=== PATIENT | female | born 1945 | race African-American/Black ===

== ENCOUNTER 2018-01-01 10:44 | Inpatient (IN) ==
[2018-01-01 11:34] LABS: Apearance,Urine CLEAR (Clear); Bacteria,Urine Occasional /HPF (Few); Bilirubin,Urine Negative (Negative); Blood, Urine Small mg/dL (Negative); Glucose,Urine (UA) Negative (Negative); Ketones,Urine Negative (Negative); Nitrite,Urine Positive (Negative); Protein,Urine Negative; RBC,Urine 1 /HPF (0-4); Squamous Epithelial Cell,Urine Occasional /HPF (0-10); Urine Color Yellow (Yellow); Urine Specific Gravity 1.008 (1.001-1.035); Urine Urobilinogen < 2.0 EU/DL (0.2-1.0); WBC,Urine 11 /HPF (0-6)
[2018-01-01 11:40] LABS: Basophils # 0.1 10*3/uL (0.0-0.2); Basophils % 0.3 % (0.0-0.8); Eosinophils # 0.1 10*3/uL (0.0-0.87); Eosinophils % 0.6 % (0.00-10.9); Hematocrit 39.7 VOL% (35.7-47.0); Hemoglobin 12.7 GM/DL (12.0-16.0); Immature Granulocytes % 0.5 %; Immature Granulocytes Absolute 0.08 #; Lymphocytes # 1.3 10*3/uL (1.4-4.0); Lymphocytes % 8.3 % (21.3-54.2); Mean Corpuscular Hemoglobin 25 PG (27-34); Mean Corpuscular Volume 77.2 FL (87-102); Mean Platelet Volume 11.1 FL (9.6-12.0); Monocytes # 1.4 10*3/uL (0.11-0.8); Monocytes % 9.4 % (1.7-12.7); Neutrophils # 12.2 10*3/uL (1.4-7.4); Neutrophils % 80.9 % (38.7-73.9); Platelet Count 257 T/CUMM (130-400); Red Blood Count 5.14 MC/CUMM (3.8-5.5); Red Cell Distribution Width 14.8 % (9.3-17.3); White Blood Count 15.1 T/CUMM (4-12)
[2018-01-01 12:10] LABS: Albumin 3.2 G/DL (3.4-5.0); Bilirubin,Total 0.7 MG/DL (0.2-1.0); Calcium 9.5 MG/DL (8.5-10.1); Osmolality,Calculated 272.4 MOS/KG (273-304); Potassium 3.5 MMOL/L (3.5-5.1); Total Protein 8.6 G/DL (6.4-8.3)
[2018-01-01] MEDS ORDERED: PIPERACILLIN/TAZOBACTAM 3,375 MG in SODIUM CHLORIDE 0.9% 100 ML IV STA (13:04)
[2018-01-01] MEDS ORDERED: ACETAMINOPHEN 325 MG TABLET PO PRN (14:48)
[2018-01-01] MEDS ORDERED: ONDANSETRON 4 MG TABLET PO PRN (14:48)
[2018-01-01] MEDS ORDERED: MAGNESIUM HYDROXIDE SUSP 30 ML UDCUP PO PRN (14:48)
[2018-01-01] MEDS ORDERED: ALUMINUM/MAGNES/SIMETH MAX STR 30 ML UDCUP PO PRN (14:48)
[2018-01-01] MEDS ORDERED: TEMAZEPAM 15 MG CAPSULE PO PRN (14:48)
[2018-01-01] MEDS ORDERED: NITROGLYCERIN SL 0.4 MG TABLET SL PRN (14:48)
[2018-01-01] MEDS ORDERED: NON-FORMULARY MEDICATION (Cholecalciferol (Vitamin D3) [Vitamin D3] 50,000 UNIT) PO SCH (15:00)
[2018-01-01] MEDS ORDERED: CYANOCOBALAMIN 1000 MCG/1 ML VIAL IM SCH (15:00)
[2018-01-01] MEDS ORDERED: LEVOFLOXACIN INJ 500 MG in PREMIX 1 EACH IV SCH (18:00)
[2018-01-01] MEDS ORDERED: OLANZapine 5 MG TABLET PO SCH (21:00)
[2018-01-01] MEDS: traMADol 50 MG TABLET PO PRN (21:22)
[2018-01-01] MEDS: VANCOMYCIN INJ 2,000 MG in SODIUM CHLORIDE 0.9% 500 ML IV SCH (21:32)
[2018-01-01] MEDS: CLOTRIMAZOLE 1% CREAM 15 GM TUBE TOP SCH (21:32)
[2018-01-01] MEDS: BUDESONIDE/FORMOTEROL 160-4.5 INHALER 6 GM INH SCH (21:32)
[2018-01-01] MEDS: URSODIOL 300 MG CAPSULE PO SCH (21:32)
[2018-01-01] MEDS: NYSTATIN POWDER 15 GM BOTTLE TOP SCH (21:32)
[2018-01-01] MEDS: FUROSEMIDE 80 MG TABLET PO SCH (21:32)
[2018-01-01] MEDS: SKIN HEALING OINT (AQUAPHOR) 50 GM TUBE TOP SCH (21:33)
[2018-01-01] MEDS: INSULIN GLARGINE 100 UNIT/ML SUBCUT SCH (21:33)
[2018-01-02] MEDS: PIPERACILLIN/TAZOBACTAM 3,375 MG in SODIUM CHLORIDE 0.9% 100 ML IV SCH ×3 (02:25→21:29)
[2018-01-02 06:30] LABS: Basophils % 0.3 % (0.0-0.8); Eosinophils # 0.3 10*3/uL (0.0-0.87); Eosinophils % 3.6 % (0.00-10.9); Hematocrit 32.6 VOL% (35.7-47.0); Hemoglobin 10.5 GM/DL (12.0-16.0); Immature Granulocytes % 0.6 %; Immature Granulocytes Absolute 0.05 #; Lymphocytes # 1.3 10*3/uL (1.4-4.0); Lymphocytes % 14.7 % (21.3-54.2); Mean Corpuscular HGB Conc 32.2 GM/DL (32-36); Mean Corpuscular Hemoglobin 25 PG (27-34); Mean Corpuscular Volume 78.2 FL (87-102); Monocytes # 0.8 10*3/uL (0.11-0.8); Monocytes % 8.8 % (1.7-12.7); Neutrophils # 6.2 10*3/uL (1.4-7.4); Platelet Count 237 T/CUMM (130-400); Red Blood Count 4.17 MC/CUMM (3.8-5.5); Red Cell Distribution Width 14.6 % (9.3-17.3); White Blood Count 8.6 T/CUMM (4-12)
[2018-01-02 07:15] LABS: Albumin 2.6 G/DL (3.4-5.0); Bilirubin,Total 0.8 MG/DL (0.2-1.0); Calcium 8.6 MG/DL (8.5-10.1); Potassium 2.8 MMOL/L (3.5-5.1); Total Protein 7.1 G/DL (6.4-8.3)
[2018-01-02] MEDS ORDERED: ALPRAZolam 0.25 MG TABLET PO PRN (07:24)
[2018-01-02] MEDS ORDERED: ONDANSETRON 4 MG/2 ML VIAL IV PRN (08:37)
[2018-01-02] MEDS ORDERED: diphenhydrAMINE 50 MG/1 ML VIAL IV PRN (08:37)
[2018-01-02] MEDS ORDERED: PROMETHAZINE INJ 25 MG in SODIUM CHLORIDE 0.9% 50 ML IV PRN (08:37)
[2018-01-02] MEDS ORDERED: LIDOCAINE 1% 20 ML VIAL ONE (08:57)
[2018-01-02] MEDS: SODIUM HYPOCHLORITE 0.25% IRRIG 473 ML BOTTLE TOP SCH (09:00)
[2018-01-02] MEDS ORDERED: DEXTROSE 50% 25 GM/50 ML VIAL IV PRN (09:09)
[2018-01-02] MEDS ORDERED: GLUCAGON 1 MG VIAL IM PRN (09:09)
[2018-01-02] MEDS: POTASSIUM CHLORIDE RIDER 10 MEQ in PREMIX 1 EACH IV PRN ×5 (09:39→14:37)
[2018-01-02] MEDS: THYROID 60 MG TABLET PO SCH (10:52)
[2018-01-02] MEDS: ASPIRIN EC 81 MG TABLET PO SCH (10:52)
[2018-01-02] MEDS: URSODIOL 300 MG CAPSULE PO SCH ×2 (10:52→21:30)
[2018-01-02] MEDS: FUROSEMIDE 80 MG TABLET PO SCH ×2 (10:53→20:24)
[2018-01-02] MEDS: BUDESONIDE/FORMOTEROL 160-4.5 INHALER 6 GM INH SCH ×2 (10:53→21:33)
[2018-01-02] MEDS: PANTOPRAZOLE 40 MG TABLET PO SCH (10:53)
[2018-01-02] MEDS: ATENOLOL 25 MG TABLET PO SCH (10:55)
[2018-01-02] MEDS: metOLazone 5 MG TABLET PO SCH ×2 (10:55→10:59)
[2018-01-02] MEDS: NYSTATIN POWDER 15 GM BOTTLE TOP SCH ×2 (13:30→21:31)
[2018-01-02] MEDS: SKIN HEALING OINT (AQUAPHOR) 50 GM TUBE TOP SCH ×2 (13:30→21:31)
[2018-01-02] MEDS: CLOTRIMAZOLE 1% CREAM 15 GM TUBE TOP SCH ×2 (13:30→21:31)
[2018-01-02] MEDS: VANCOMYCIN INJ 2,000 MG in SODIUM CHLORIDE 0.9% 500 ML IV SCH (16:10)
[2018-01-02] MEDS: INSULIN GLARGINE 100 UNIT/ML SUBCUT SCH (21:31)
[2018-01-02] MEDS: MECLIZINE 25 MG TABLET PO PRN (23:57)
[2018-01-03] MEDS: POTASSIUM CHLORIDE RIDER 10 MEQ in PREMIX 1 EACH IV PRN ×6 (01:35→18:11)
[2018-01-03] MEDS: traMADol 50 MG TABLET PO PRN ×3 (02:57→21:40)
[2018-01-03 05:15] LABS: Basophils % 0.4 % (0.0-0.8); Eosinophils # 0.4 10*3/uL (0.0-0.87); Eosinophils % 5.2 % (0.00-10.9); Hemoglobin 10.7 GM/DL (12.0-16.0); Immature Granulocytes % 0.6 %; Immature Granulocytes Absolute 0.04 #; Lymphocytes # 1.3 10*3/uL (1.4-4.0); Lymphocytes % 17.5 % (21.3-54.2); Mean Corpuscular HGB Conc 32.4 GM/DL (32-36); Mean Corpuscular Hemoglobin 25 PG (27-34); Mean Corpuscular Volume 76.6 FL (87-102); Mean Platelet Volume 10.8 FL (9.6-12.0); Monocytes # 0.7 10*3/uL (0.11-0.8); Monocytes % 9.1 % (1.7-12.7); Neutrophils # 4.9 10*3/uL (1.4-7.4); Neutrophils % 67.2 % (38.7-73.9); Platelet Count 263 T/CUMM (130-400); Red Blood Count 4.31 MC/CUMM (3.8-5.5); Red Cell Distribution Width 14.7 % (9.3-17.3); White Blood Count 7.2 T/CUMM (4-12)
[2018-01-03 05:49] LABS: Albumin 2.5 G/DL (3.4-5.0); Bilirubin,Total 0.5 MG/DL (0.2-1.0); Calcium 8.9 MG/DL (8.5-10.1); Osmolality,Calculated 278.7 MOS/KG (273-304); Potassium 3.4 MMOL/L (3.5-5.1)
[2018-01-03] MEDS: PIPERACILLIN/TAZOBACTAM 3,375 MG in SODIUM CHLORIDE 0.9% 100 ML IV SCH ×3 (05:50→22:16)
[2018-01-03] MEDS: PANTOPRAZOLE 40 MG TABLET PO SCH (08:55)
[2018-01-03] MEDS: ATENOLOL 25 MG TABLET PO SCH (08:56)
[2018-01-03] MEDS: BUDESONIDE/FORMOTEROL 160-4.5 INHALER 6 GM INH SCH ×2 (09:02→21:40)
[2018-01-03] MEDS ORDERED: PROMETHAZINE INJ 25 MG in SODIUM CHLORIDE 0.9% 50 ML IV PRN (09:46)
[2018-01-03] MEDS ORDERED: ONDANSETRON 4 MG/2 ML VIAL IV PRN (09:46)
[2018-01-03] MEDS ORDERED: fentaNYL 100 MCG/2 ML VIAL IV PRN ×2 (09:47)
[2018-01-03] MEDS: VANCOMYCIN INJ 2,000 MG in SODIUM CHLORIDE 0.9% 500 ML IV SCH (11:44)
[2018-01-03] MEDS ORDERED: PROPOFOL 200 MG/20 ML VIAL IV ONE (12:05)
[2018-01-03] MEDS ORDERED: fentaNYL 100 MCG/2 ML VIAL ONE (12:06)
[2018-01-03] MEDS ORDERED: MIDAZOLAM 2 MG/2 ML VIAL ONE (12:06)
[2018-01-03] MEDS ORDERED: GLUCAGON 1 MG VIAL IM PRN (12:13)
[2018-01-03] MEDS ORDERED: DEXTROSE 50% 25 GM/50 ML VIAL IV PRN (12:13)
[2018-01-03] MEDS: SKIN HEALING OINT (AQUAPHOR) 50 GM TUBE TOP SCH ×2 (15:31→21:41)
[2018-01-03] MEDS: URSODIOL 300 MG CAPSULE PO SCH ×2 (15:31→22:02)
[2018-01-03] MEDS: CLOTRIMAZOLE 1% CREAM 15 GM TUBE TOP SCH ×2 (15:32→21:42)
[2018-01-03] MEDS: FUROSEMIDE 80 MG TABLET PO SCH ×3 (15:32→22:15)
[2018-01-03] MEDS: SODIUM HYPOCHLORITE 0.25% IRRIG 473 ML BOTTLE TOP SCH (15:32)
[2018-01-03] MEDS: ASPIRIN EC 81 MG TABLET PO SCH (15:32)
[2018-01-03] MEDS: THYROID 60 MG TABLET PO SCH (16:44)
[2018-01-03] MEDS: metOLazone 5 MG TABLET PO SCH (17:58)
[2018-01-03] MEDS: NYSTATIN POWDER 15 GM BOTTLE TOP SCH ×2 (17:58→21:42)
[2018-01-03] MEDS: INSULIN GLARGINE 100 UNIT/ML SUBCUT SCH (21:41)
[2018-01-04] MEDS: traMADol 50 MG TABLET PO PRN ×4 (03:33→22:09)
[2018-01-04 05:09] LABS: Basophils % 0.5 % (0.0-0.8); Eosinophils # 0.4 10*3/uL (0.0-0.87); Eosinophils % 5.6 % (0.00-10.9); Hematocrit 33.9 VOL% (35.7-47.0); Hemoglobin 10.7 GM/DL (12.0-16.0); Immature Granulocytes % 0.3 %; Immature Granulocytes Absolute 0.02 #; Lymphocytes # 1.5 10*3/uL (1.4-4.0); Lymphocytes % 19.8 % (21.3-54.2); Mean Corpuscular HGB Conc 31.6 GM/DL (32-36); Mean Corpuscular Hemoglobin 25 PG (27-34); Mean Corpuscular Volume 79.2 FL (87-102); Mean Platelet Volume 10.1 FL (9.6-12.0); Monocytes # 0.7 10*3/uL (0.11-0.8); Monocytes % 9.8 % (1.7-12.7); Neutrophils # 4.8 10*3/uL (1.4-7.4); Platelet Count 262 T/CUMM (130-400); Red Blood Count 4.28 MC/CUMM (3.8-5.5); Red Cell Distribution Width 14.9 % (9.3-17.3); White Blood Count 7.5 T/CUMM (4-12)
[2018-01-04 05:38] LABS: Albumin 2.6 G/DL (3.4-5.0); Bilirubin,Total 0.6 MG/DL (0.2-1.0); Calcium 8.7 MG/DL (8.5-10.1); Osmolality,Calculated 277.5 MOS/KG (273-304); Potassium 3.5 MMOL/L (3.5-5.1); Total Protein 7.2 G/DL (6.4-8.3)
[2018-01-04] MEDS: VANCOMYCIN INJ 2,000 MG in SODIUM CHLORIDE 0.9% 500 ML IV SCH ×2 (06:22→11:05)
[2018-01-04] MEDS: PIPERACILLIN/TAZOBACTAM 3,375 MG in SODIUM CHLORIDE 0.9% 100 ML IV SCH ×2 (06:33→16:35)
[2018-01-04] MEDS: ASPIRIN EC 81 MG TABLET PO SCH (09:30)
[2018-01-04] MEDS: PANTOPRAZOLE 40 MG TABLET PO SCH (09:30)
[2018-01-04] MEDS: ATENOLOL 25 MG TABLET PO SCH (09:30)
[2018-01-04] MEDS: URSODIOL 300 MG CAPSULE PO SCH ×2 (09:30→22:00)
[2018-01-04] MEDS: FUROSEMIDE 80 MG TABLET PO SCH ×2 (09:30→22:00)
[2018-01-04] MEDS: THYROID 60 MG TABLET PO SCH (09:30)
[2018-01-04] MEDS: SODIUM HYPOCHLORITE 0.25% IRRIG 473 ML BOTTLE TOP SCH (09:31)
[2018-01-04] MEDS: CLOTRIMAZOLE 1% CREAM 15 GM TUBE TOP SCH ×2 (09:31→22:02)
[2018-01-04] MEDS: NYSTATIN POWDER 15 GM BOTTLE TOP SCH ×2 (09:31→22:03)
[2018-01-04] MEDS: metOLazone 5 MG TABLET PO SCH (09:31)
[2018-01-04] MEDS: SKIN HEALING OINT (AQUAPHOR) 50 GM TUBE TOP SCH ×2 (09:31→22:03)
[2018-01-04] MEDS: BUDESONIDE/FORMOTEROL 160-4.5 INHALER 6 GM INH SCH ×2 (09:48→22:02)
[2018-01-04] MEDS: MECLIZINE 25 MG TABLET PO PRN (11:08)
[2018-01-04] MEDS: POLYETHYLENE GLYCOL POWDER 17 GM PACK PO PRN (11:08)
[2018-01-04] MEDS: INSULIN GLARGINE 100 UNIT/ML SUBCUT SCH (22:01)
[2018-01-05] MEDS: traMADol 50 MG TABLET PO PRN ×2 (04:05→22:03)
[2018-01-05] MEDS: PIPERACILLIN/TAZOBACTAM 3,375 MG in SODIUM CHLORIDE 0.9% 100 ML IV SCH ×3 (09:16→19:03)
[2018-01-05] MEDS: URSODIOL 300 MG CAPSULE PO SCH ×2 (09:17→22:03)
[2018-01-05] MEDS: PANTOPRAZOLE 40 MG TABLET PO SCH (09:17)
[2018-01-05] MEDS: MECLIZINE 25 MG TABLET PO PRN (09:17)
[2018-01-05] MEDS: THYROID 60 MG TABLET PO SCH (09:18)
[2018-01-05] MEDS: FUROSEMIDE 80 MG TABLET PO SCH ×2 (09:18→22:04)
[2018-01-05] MEDS: ATENOLOL 25 MG TABLET PO SCH ×2 (09:19→09:37)
[2018-01-05] MEDS: metOLazone 5 MG TABLET PO SCH (09:20)
[2018-01-05] MEDS: ASPIRIN EC 81 MG TABLET PO SCH (09:22)
[2018-01-05] MEDS: SKIN HEALING OINT (AQUAPHOR) 50 GM TUBE TOP SCH ×2 (09:35→22:05)
[2018-01-05] MEDS: NYSTATIN POWDER 15 GM BOTTLE TOP SCH ×2 (09:36→22:04)
[2018-01-05] MEDS: BUDESONIDE/FORMOTEROL 160-4.5 INHALER 6 GM INH SCH ×2 (09:36→22:04)
[2018-01-05] MEDS: CLOTRIMAZOLE 1% CREAM 15 GM TUBE TOP SCH ×2 (09:36→22:04)
[2018-01-05] MEDS: SODIUM HYPOCHLORITE 0.25% IRRIG 473 ML BOTTLE TOP SCH (09:36)
[2018-01-05] MEDS: VANCOMYCIN INJ 2,000 MG in SODIUM CHLORIDE 0.9% 500 ML IV SCH (16:04)
[2018-01-05] MEDS: POLYETHYLENE GLYCOL POWDER 17 GM PACK PO PRN (19:03)
[2018-01-05] MEDS: POTASSIUM CHLORIDE 20 MEQ TABLET PO SCH (22:03)
[2018-01-05] MEDS: INSULIN GLARGINE 100 UNIT/ML SUBCUT SCH (22:03)
[2018-01-06] MEDS: PIPERACILLIN/TAZOBACTAM 3,375 MG in SODIUM CHLORIDE 0.9% 100 ML IV SCH ×3 (02:46→20:49)
[2018-01-06] MEDS: traMADol 50 MG TABLET PO PRN (06:05)
[2018-01-06 06:25] LABS: Basophils # 0.1 10*3/uL (0.0-0.2); Basophils % 0.7 % (0.0-0.8); Eosinophils # 0.3 10*3/uL (0.0-0.87); Eosinophils % 4.3 % (0.00-10.9); Hematocrit 35.2 VOL% (35.7-47.0); Hemoglobin 10.9 GM/DL (12.0-16.0); Immature Granulocytes % 0.1 %; Immature Granulocytes Absolute 0.01 #; Lymphocytes # 1.4 10*3/uL (1.4-4.0); Lymphocytes % 21.6 % (21.3-54.2); Mean Corpuscular Hemoglobin 25 PG (27-34); Mean Corpuscular Volume 79.1 FL (87-102); Mean Platelet Volume 10.4 FL (9.6-12.0); Monocytes # 0.7 10*3/uL (0.11-0.8); Monocytes % 10.5 % (1.7-12.7); Neutrophils # 4.2 10*3/uL (1.4-7.4); Neutrophils % 62.8 % (38.7-73.9); Platelet Count 286 T/CUMM (130-400); Red Blood Count 4.45 MC/CUMM (3.8-5.5); Red Cell Distribution Width 14.9 % (9.3-17.3); White Blood Count 6.7 T/CUMM (4-12)
[2018-01-06 06:52] LABS: Calcium 9.2 MG/DL (8.5-10.1); Osmolality,Calculated 275.7 MOS/KG (273-304); Potassium 3.7 MMOL/L (3.5-5.1)
[2018-01-06] MEDS: URSODIOL 300 MG CAPSULE PO SCH ×2 (08:32→20:24)
[2018-01-06] MEDS: ASPIRIN EC 81 MG TABLET PO SCH (08:32)
[2018-01-06] MEDS: THYROID 60 MG TABLET PO SCH (08:32)
[2018-01-06] MEDS: PANTOPRAZOLE 40 MG TABLET PO SCH (08:32)
[2018-01-06] MEDS: FUROSEMIDE 80 MG TABLET PO SCH ×2 (08:33→20:45)
[2018-01-06] MEDS: POTASSIUM CHLORIDE 20 MEQ TABLET PO SCH ×2 (08:34→20:45)
[2018-01-06] MEDS: METHOCARBAMOL 500 MG TABLET PO PRN (08:34)
[2018-01-06] MEDS: NYSTATIN POWDER 15 GM BOTTLE TOP SCH ×2 (08:35→21:25)
[2018-01-06] MEDS: BUDESONIDE/FORMOTEROL 160-4.5 INHALER 6 GM INH SCH ×2 (08:35→20:21)
[2018-01-06] MEDS: CLOTRIMAZOLE 1% CREAM 15 GM TUBE TOP SCH ×2 (08:35→21:25)
[2018-01-06] MEDS: SODIUM HYPOCHLORITE 0.25% IRRIG 473 ML BOTTLE TOP SCH (08:35)
[2018-01-06] MEDS: SKIN HEALING OINT (AQUAPHOR) 50 GM TUBE TOP SCH ×2 (08:35→21:25)
[2018-01-06] MEDS: metOLazone 5 MG TABLET PO SCH (08:36)
[2018-01-06] MEDS: VANCOMYCIN INJ 2,000 MG in SODIUM CHLORIDE 0.9% 500 ML IV SCH (16:45)
[2018-01-06] MEDS: INSULIN GLARGINE 100 UNIT/ML SUBCUT SCH (20:28)
[2018-01-07] MEDS: traMADol 50 MG TABLET PO PRN ×2 (00:02→12:46)
[2018-01-07] MEDS: METHOCARBAMOL 500 MG TABLET PO PRN (05:06)
[2018-01-07] MEDS: PIPERACILLIN/TAZOBACTAM 3,375 MG in SODIUM CHLORIDE 0.9% 100 ML IV SCH ×2 (05:08→12:53)
[2018-01-07] MEDS: PANTOPRAZOLE 40 MG TABLET PO SCH (08:43)
[2018-01-07] MEDS: THYROID 60 MG TABLET PO SCH (08:43)
[2018-01-07] MEDS: POTASSIUM CHLORIDE 20 MEQ TABLET PO SCH (08:43)
[2018-01-07] MEDS: metOLazone 5 MG TABLET PO SCH (08:43)
[2018-01-07] MEDS: FUROSEMIDE 80 MG TABLET PO SCH (08:43)
[2018-01-07] MEDS: URSODIOL 300 MG CAPSULE PO SCH (08:43)
[2018-01-07] MEDS: ASPIRIN EC 81 MG TABLET PO SCH (08:45)
[2018-01-07] MEDS: BUDESONIDE/FORMOTEROL 160-4.5 INHALER 6 GM INH SCH (08:46)
[2018-01-07] MEDS: NYSTATIN POWDER 15 GM BOTTLE TOP SCH (08:47)
[2018-01-07] MEDS: CLOTRIMAZOLE 1% CREAM 15 GM TUBE TOP SCH (08:48)
[2018-01-07] MEDS: SODIUM HYPOCHLORITE 0.25% IRRIG 473 ML BOTTLE TOP SCH (08:48)
[2018-01-07] MEDS: SKIN HEALING OINT (AQUAPHOR) 50 GM TUBE TOP SCH (08:48)
[2018-01-07 15:03] VITALS: BP 144/58
== END 2018-01-07 14:50 | disposition home health service (06) | DRG 603 ==
LOC: EDUNIT# → N.ED 10:44 → SUATTDRO 14:46 → N.EDINP 14:46 → N.3E 16:55
PROVIDERS: ADMIT Internal Medicine; ATTEND Internal Medicine

== ENCOUNTER 2018-01-12 16:40 | Inpatient (IN) ==
[2018-01-15 11:59] VITALS: BP 130/59
== END 2018-01-15 16:29 | disposition home health service (06) | DRG 603 ==
LOC: EDUNIT# → EDBD → N.ED 16:40 → N.EDINP 20:28 → SUATTDRO 20:28 → N.ICU 23:50 → N.2E 01-13 16:30
PROVIDERS: ADMIT Internal Medicine; ATTEND Hospitalist

== ENCOUNTER 2019-01-20 08:00 | Inpatient (IN) ==
[2019-01-20] MEDS ORDERED: SODIUM CHLORIDE 0.9% 1,000 ML IV STA (09:27)
[2019-01-20 09:52] LABS: ABG Base Excess 4.2 MMOL/L (-2.5-2.5); ABG HCO3 28.2 MMOL/L (20-26); ABG Oxygen Saturation 98.4 % (95-100); ABG PCO2 39.1 MM HG (35-48); ABG PH 7.466 (7.35-7.45)
[2019-01-20 10:51] LABS: Basophils # 0.1 10*3/uL (0.0-0.2); Basophils % 0.3 % (0.0-0.8); Hematocrit 35.6 VOL% (35.7-47.0); Hemoglobin 11.5 GM/DL (12.0-16.0); Immature Granulocytes % 1.4 %; Immature Granulocytes Absolute 0.38 #; Lymphocytes # 1.6 10*3/uL (1.4-4.0); Lymphocytes % 6.1 % (21.3-54.2); Mean Corpuscular HGB Conc 32.3 GM/DL (32-36); Mean Corpuscular Volume 78.6 FL (87-102); Mean Platelet Volume 10.7 FL (9.6-12.0); Monocytes % 7.5 % (1.7-12.7); Neutrophils % 84.7 % (38.7-73.9); Platelet Count 211 T/CUMM (130-400); Red Blood Count 4.53 MC/CUMM (3.8-5.5); Red Cell Distribution Width 15.9 % (9.3-17.3); White Blood Count 26.3 T/CUMM (4-12)
[2019-01-20 11:10] LABS: Hypochromasia 1+; Lymphocytes 10 % (20-55); Platelet Estimate Adequate; Segmented Neutrophils 81 % (50-85); Total Cells Counted 100
[2019-01-20 11:20] LABS: Alanine Aminotransferase 25 U/L (13-56); Albumin 2.9 G/DL (3.4-5.0); Alkaline Phosphatase 121 U/L (45-117); Aspartate Amino Transferase 156 U/L (0-37); Blood Urea Nitrogen 39 MG/DL (7-18); CKMB % 1.3 %; Calcium 9.1 MG/DL (8.5-10.1); Glucose 132 MG/DL (74-106); Osmolality,Calculated 285.7 MOS/KG (273-304); Total Protein 8.5 G/DL (6.4-8.3)
[2019-01-20 11:23] LABS: Troponin I 0.153 NG/ML (0.00-0.045)
[2019-01-20 14:37] LABS: Apearance,Urine Slightly Hazy (Clear); Bacteria,Urine Moderate /HPF (Few); Bilirubin,Urine Negative (Negative); Blood, Urine Large mg/dL (Negative); Glucose,Urine (UA) Negative (Negative); Hyaline Casts,Urine 3 /LPF (0-3); Ketones,Urine Negative (Negative); Mucus,Urine Occasional /LPF (Occasional); Nitrite,Urine Positive (Negative); Protein,Urine 30 MG/DL; RBC,Urine 1 /HPF (0-4); Squamous Epithelial Cell,Urine Occasional /HPF (0-10); Urine Color Yellow (Yellow); Urine Specific Gravity 1.015 (1.001-1.035); Urine Urobilinogen < 2.0 EU/DL (0.2-1.0); WBC,Urine 86 /HPF (0-6)
[2019-01-20] MEDS ORDERED: ONDANSETRON 4 MG/2 ML VIAL IV PRN (15:31)
[2019-01-20] MEDS ORDERED: GLUCAGON 1 MG VIAL IM PRN (15:35)
[2019-01-20] MEDS ORDERED: DEXTROSE 10% 25 GM/250 ML BAG IV PRN (15:35)
[2019-01-20] MEDS ORDERED: BUDESONIDE/FORMOTEROL 80-4.5 INHALER 6.9 GM INH PRN (16:33)
[2019-01-20] MEDS ORDERED: NITROGLYCERIN SL 0.4 MG TABLET SL PRN (16:33)
[2019-01-20] MEDS ORDERED: MAGNESIUM HYDROXIDE SUSP 30 ML UDCUP PO PRN (16:33)
[2019-01-20] MEDS ORDERED: POLYETHYLENE GLYCOL POWDER 17 GM PACK PO PRN (16:33)
[2019-01-20] MEDS ORDERED: ASPIRIN EC 81 MG TABLET PO PRN (16:33)
[2019-01-20] MEDS ORDERED: traMADol 50 MG TABLET PO STA (16:40)
[2019-01-20] MEDS: POTASSIUM CHLORIDE 20 MEQ TABLET PO PRN (16:45)
[2019-01-20] MEDS ORDERED: CYANOCOBALAMIN 1000 MCG/1 ML VIAL IM SCH (17:00)
[2019-01-20] MEDS ORDERED: SODIUM CHLORIDE 0.9% 1,000 ML IV SCH (17:00)
[2019-01-20 18:18] LABS: CKMB % 0.9 %
[2019-01-20 18:22] LABS: Troponin I 0.118 NG/ML (0.00-0.045)
[2019-01-20] MEDS: PIPERACILLIN/TAZOBACTAM 3,375 MG in SODIUM CHLORIDE 0.9% 100 ML IV SCH (18:57)
[2019-01-20] MEDS ORDERED: MAGNESIUM OXIDE 400 MG TABLET PO SCH (21:00)
[2019-01-20] MEDS: INSULIN LISPRO 100 UNIT/ML SUBCUT SCH (21:04)
[2019-01-20 21:14] LABS: CKMB % 0.8 %
[2019-01-20 21:15] LABS: Troponin I 0.098 NG/ML (0.00-0.045)
[2019-01-20] MEDS: URSODIOL 300 MG CAPSULE PO SCH (23:09)
[2019-01-20] MEDS: POTASSIUM CHLORIDE 20 MEQ TABLET PO SCH (23:09)
[2019-01-20] MEDS: traMADol 50 MG TABLET PO PRN (23:09)
[2019-01-20] MEDS: NYSTATIN POWDER 15 GM BOTTLE TOP SCH (23:10)
[2019-01-21] MEDS: PIPERACILLIN/TAZOBACTAM 3,375 MG in SODIUM CHLORIDE 0.9% 100 ML IV SCH ×3 (01:12→22:28)
[2019-01-21] MEDS ORDERED: ALBUTEROL/IPRATROPIUM 3 ML NEB RESP TX PRN (01:46)
[2019-01-21 05:20] LABS: Basophils % 0.2 % (0.0-0.8); Eosinophils % 0.2 % (0.00-10.9); Hematocrit 32.6 VOL% (35.7-47.0); Hemoglobin 10.3 GM/DL (12.0-16.0); Immature Granulocytes % 0.5 %; Lymphocytes # 1.7 10*3/uL (1.4-4.0); Mean Corpuscular HGB Conc 31.6 GM/DL (32-36); Mean Corpuscular Volume 78.6 FL (87-102); Mean Platelet Volume 10.9 FL (9.6-12.0); Monocytes % 6.2 % (1.7-12.7); Neutrophils % 83.9 % (38.7-73.9); Platelet Count 199 T/CUMM (130-400); Red Blood Count 4.15 MC/CUMM (3.8-5.5); Red Cell Distribution Width 15.9 % (9.3-17.3); White Blood Count 18.5 T/CUMM (4-12)
[2019-01-21] MEDS: traMADol 50 MG TABLET PO PRN ×2 (06:06→21:48)
[2019-01-21 06:08] LABS: Calcium 8.8 MG/DL (8.5-10.1); Osmolality,Calculated 282.7 MOS/KG (273-304); Risk Ratio 1.98; Thyroid Stimulating Hormone 1.03 uIU/ml (0.358-3.74); VLDL CHOLESTEROL 12.2 MG/DL
[2019-01-21] MEDS ORDERED: MAGNESIUM SULF RIDER 4 GM in PREMIX 1 EACH IV PRN (07:48)
[2019-01-21] MEDS ORDERED: MAGNESIUM SULF RIDER 2 GM in PREMIX 1 EACH IV PRN (07:48)
[2019-01-21] MEDS: INSULIN LISPRO 100 UNIT/ML SUBCUT SCH ×4 (09:20→22:11)
[2019-01-21] MEDS: URSODIOL 300 MG CAPSULE PO SCH ×2 (09:21→21:48)
[2019-01-21] MEDS: THYROID 60 MG TABLET PO SCH (09:21)
[2019-01-21] MEDS: POTASSIUM CHLORIDE 20 MEQ TABLET PO SCH ×2 (09:22→21:48)
[2019-01-21] MEDS: PANTOPRAZOLE 40 MG TABLET PO SCH (09:22)
[2019-01-21] MEDS: BUDESONIDE/FORMOTEROL 160-4.5 INHALER 6 GM INH SCH ×2 (10:38→21:56)
[2019-01-21] MEDS: NYSTATIN POWDER 15 GM BOTTLE TOP SCH ×3 (10:38→21:55)
[2019-01-21] MEDS: POTASSIUM CHLORIDE 20 MEQ TABLET PO PRN (12:20)
[2019-01-21] MEDS: SODIUM HYPOCHLORITE 0.25% IRRIG 473 ML BOTTLE TOP SCH (14:49)
[2019-01-21] MEDS ORDERED: SKIN HEALING OINT (AQUAPHOR) 50 GM TUBE TOP PRN (14:51)
[2019-01-22 05:48] LABS: Basophils % 0.3 % (0.0-0.8); Eosinophils # 0.2 10*3/uL (0.0-0.87); Eosinophils % 1.7 % (0.00-10.9); Hematocrit 32.6 VOL% (35.7-47.0); Hemoglobin 10.1 GM/DL (12.0-16.0); Immature Granulocytes % 0.4 %; Immature Granulocytes Absolute 0.05 #; Lymphocytes # 1.8 10*3/uL (1.4-4.0); Lymphocytes % 15.6 % (21.3-54.2); Mean Corpuscular Volume 81.3 FL (87-102); Monocytes % 7.9 % (1.7-12.7); Neutrophils % 74.1 % (38.7-73.9); Platelet Count 209 T/CUMM (130-400); Red Blood Count 4.01 MC/CUMM (3.8-5.5); Red Cell Distribution Width 16.3 % (9.3-17.3); White Blood Count 11.5 T/CUMM (4-12)
[2019-01-22 06:07] LABS: Calcium 8.8 MG/DL (8.5-10.1); Osmolality,Calculated 284.3 MOS/KG (273-304)
[2019-01-22] MEDS: PIPERACILLIN/TAZOBACTAM 3,375 MG in SODIUM CHLORIDE 0.9% 100 ML IV SCH (06:24)
[2019-01-22] MEDS: INSULIN LISPRO 100 UNIT/ML SUBCUT SCH ×4 (08:51→22:45)
[2019-01-22] MEDS: THYROID 60 MG TABLET PO SCH (08:52)
[2019-01-22] MEDS: URSODIOL 300 MG CAPSULE PO SCH ×2 (08:52→20:48)
[2019-01-22] MEDS: PANTOPRAZOLE 40 MG TABLET PO SCH (08:52)
[2019-01-22] MEDS: POTASSIUM CHLORIDE 20 MEQ TABLET PO SCH ×2 (08:52→20:47)
[2019-01-22] MEDS ORDERED: FLUCONAZOLE 200 MG TABLET PO ONE (09:45)
[2019-01-22] MEDS ORDERED: LORazepam 2 MG/1 ML VIAL IV ONE (10:03)
[2019-01-22] MEDS: ENOXAPARIN 40 MG/0.4 ML SYRINGE SUBCUT SCH (10:18)
[2019-01-22] MEDS: methylPREDNISolone SOD SUC 40 MG/1 ML VIAL IV SCH ×2 (10:19→17:20)
[2019-01-22] MEDS: CLORAZEPATE 3.75 MG TABLET PO SCH ×4 (10:19→22:44)
[2019-01-22] MEDS: cefTRIAXone 1,000 MG in SYRINGE 1 EACH IV SCH (10:21)
[2019-01-22] MEDS: NYSTATIN POWDER 15 GM BOTTLE TOP SCH ×3 (10:22→20:47)
[2019-01-22] MEDS: BUDESONIDE/FORMOTEROL 160-4.5 INHALER 6 GM INH SCH (10:22)
[2019-01-22] MEDS: AZITHROMYCIN INJ 500 MG in SODIUM CHLORIDE 0.9% 250 ML IV SCH (10:32)
[2019-01-22] MEDS ORDERED: FUROSEMIDE 40 MG/4 ML VIAL IV ONE (10:50)
[2019-01-22] MEDS ORDERED: diphenhydrAMINE 50 MG/1 ML VIAL IV ONE (10:58)
[2019-01-22] MEDS ORDERED: MECLIZINE 25 MG TABLET PO ONE (11:15)
[2019-01-22] MEDS: ARFORMOTEROL 15 MCG/2 ML NEB RESP TX SCH ×2 (12:06→19:39)
[2019-01-22] MEDS: ALBUTEROL/IPRATROPIUM 3 ML NEB RESP TX SCH ×2 (12:06→19:39)
[2019-01-22] MEDS ORDERED: MECLIZINE 25 MG TABLET PO PRN (15:11)
[2019-01-22] MEDS: SODIUM HYPOCHLORITE 0.25% IRRIG 473 ML BOTTLE TOP SCH (15:40)
[2019-01-22] MEDS: MECLIZINE 25 MG TABLET PO SCH ×2 (15:54→20:48)
[2019-01-22] MEDS: traMADol 50 MG TABLET PO PRN (20:47)
[2019-01-23] MEDS: methylPREDNISolone SOD SUC 40 MG/1 ML VIAL IV SCH ×2 (00:03→08:51)
[2019-01-23] MEDS: ALBUTEROL/IPRATROPIUM 3 ML NEB RESP TX SCH ×4 (00:35→19:42)
[2019-01-23] MEDS: traMADol 50 MG TABLET PO PRN ×2 (02:09→21:33)
[2019-01-23 05:27] LABS: Basophils % 0.1 % (0.0-0.8); Hematocrit 34.1 VOL% (35.7-47.0); Hemoglobin 10.7 GM/DL (12.0-16.0); Immature Granulocytes % 0.5 %; Immature Granulocytes Absolute 0.04 #; Lymphocytes # 0.6 10*3/uL (1.4-4.0); Lymphocytes % 7.8 % (21.3-54.2); Mean Corpuscular HGB Conc 31.4 GM/DL (32-36); Mean Corpuscular Volume 79.5 FL (87-102); Mean Platelet Volume 11.3 FL (9.6-12.0); Monocytes % 1.3 % (1.7-12.7); Neutrophils % 90.3 % (38.7-73.9); Platelet Count 241 T/CUMM (130-400); Red Blood Count 4.29 MC/CUMM (3.8-5.5); Red Cell Distribution Width 15.9 % (9.3-17.3); White Blood Count 7.5 T/CUMM (4-12)
[2019-01-23 05:55] LABS: Albumin 2.7 G/DL (3.4-5.0); Bilirubin,Total 0.5 MG/DL (0.2-1.0); Calcium 9.4 MG/DL (8.5-10.1); Osmolality,Calculated 281.7 MOS/KG (273-304); Total Protein 8.2 G/DL (6.4-8.3)
[2019-01-23] MEDS: ARFORMOTEROL 15 MCG/2 ML NEB RESP TX SCH ×2 (07:42→19:42)
[2019-01-23] MEDS: INSULIN LISPRO 100 UNIT/ML SUBCUT SCH ×4 (08:48→21:32)
[2019-01-23] MEDS: CLORAZEPATE 3.75 MG TABLET PO SCH ×3 (08:49→21:35)
[2019-01-23] MEDS: POTASSIUM CHLORIDE 20 MEQ TABLET PO SCH ×2 (08:50→21:34)
[2019-01-23] MEDS: URSODIOL 300 MG CAPSULE PO SCH ×2 (08:50→21:34)
[2019-01-23] MEDS: THYROID 60 MG TABLET PO SCH (08:50)
[2019-01-23] MEDS: MECLIZINE 25 MG TABLET PO SCH ×3 (08:50→21:34)
[2019-01-23] MEDS: NYSTATIN POWDER 15 GM BOTTLE TOP SCH ×3 (08:51→21:42)
[2019-01-23] MEDS: PANTOPRAZOLE 40 MG TABLET PO SCH ×2 (08:51)
[2019-01-23] MEDS: ENOXAPARIN 40 MG/0.4 ML SYRINGE SUBCUT SCH (08:51)
[2019-01-23] MEDS: cefTRIAXone 1,000 MG in SYRINGE 1 EACH IV SCH (08:52)
[2019-01-23] MEDS: AZITHROMYCIN INJ 500 MG in SODIUM CHLORIDE 0.9% 250 ML IV SCH (08:55)
[2019-01-23] MEDS: SODIUM HYPOCHLORITE 0.25% IRRIG 473 ML BOTTLE TOP SCH (09:39)
[2019-01-24] MEDS: ALBUTEROL/IPRATROPIUM 3 ML NEB RESP TX SCH ×2 (02:38→07:11)
[2019-01-24] MEDS: ARFORMOTEROL 15 MCG/2 ML NEB RESP TX SCH (07:11)
[2019-01-24] MEDS: cefTRIAXone 1,000 MG in SYRINGE 1 EACH IV SCH (09:51)
[2019-01-24] MEDS: POTASSIUM CHLORIDE 20 MEQ TABLET PO SCH (09:51)
[2019-01-24] MEDS: MECLIZINE 25 MG TABLET PO SCH (09:51)
[2019-01-24] MEDS: PANTOPRAZOLE 40 MG TABLET PO SCH ×2 (09:51→09:54)
[2019-01-24] MEDS: THYROID 60 MG TABLET PO SCH (09:52)
[2019-01-24] MEDS: URSODIOL 300 MG CAPSULE PO SCH (09:52)
[2019-01-24] MEDS: CLORAZEPATE 3.75 MG TABLET PO SCH (09:52)
[2019-01-24] MEDS: SODIUM HYPOCHLORITE 0.25% IRRIG 473 ML BOTTLE TOP SCH (09:53)
[2019-01-24] MEDS: NYSTATIN POWDER 15 GM BOTTLE TOP SCH (09:53)
[2019-01-24] MEDS: INSULIN LISPRO 100 UNIT/ML SUBCUT SCH (09:53)
[2019-01-24] MEDS: ENOXAPARIN 40 MG/0.4 ML SYRINGE SUBCUT SCH (09:54)
[2019-01-24] MEDS: AZITHROMYCIN INJ 500 MG in SODIUM CHLORIDE 0.9% 250 ML IV SCH (09:56)
[2019-01-24] MEDS: traMADol 50 MG TABLET PO PRN (09:58)
[2019-01-24 11:55] VITALS: BP 151/73
== END 2019-01-24 13:20 | disposition home or self-care (01) | DRG 689 ==
LOC: EDBD → EDUNIT# → N.ED 08:00 → N.EDINP 08:00 → N.5E 16:24
PROVIDERS: ADMIT Internal Medicine; ATTEND Internal Medicine